=== PATIENT | female | born 1950 | race Two or more races ===

== ENCOUNTER 2025-02-25 06:04 | Day surgery (SDC) | payer MEDICARE, OTHER ==
[2025-02-20 12:09] LABS: Hematocrit 36.9 % (36.0-46.0); Hemoglobin 12.6 g/dL (12.2-16.2); Mean Corpuscular Hemoglobin 29.9 pg (28.0-32.0); Mean Corpuscular Volume 87.6 fL (80.0-100.0); Nucleated Red Blood Cells % 0.0 %
[2025-02-20 12:16] LABS: Urine Protein, UAD TRACE (Negative)
[2025-02-20 12:29] LABS: INR 1.08 (0.9-1.15); Partial Thromboplastin Time 23.6 SEC (24.5-34.5); Prothrombin Time 11.4 sec (9.3-11.8)
[2025-02-20 12:44] LABS: Alanine Aminotransferase 12 U/L (7-40); Albumin 3.9 g/dL (3.2-4.8); Anion Gap 8 (5-15); BUN/Creatinine Ratio 19.7 (10.0-20.0); Blood Urea Nitrogen 13 mg/dL (9-23); Calcium 9.1 mg/dL (8.7-10.4); Carbon Dioxide 27 mmol/L (20-31); Glucose 86 mg/dL (74-106); Potassium 4.3 mmol/L (3.5-5.1); Sodium 144 mmol/L (136-145); Total Protein 6.2 g/dL (5.7-8.2)
[2025-02-20 12:45] LABS: Alkaline Phosphatase 43 U/L (46-116); Bilirubin, Total 0.3 mg/dL (0.2-1.0); Chloride 109 mmol/L (98-107)
[~2025-02-25] VITALS: Ht 160 cm; Wt 54.4 kg
[~2025-02-25 06:04] MED LIST: LEVO88TA4 PO; ROSU40TA81 PO; TAMO20TA9 PO
[2025-02-25] MEDS ORDERED: ceFAZolin 2 GM/D5W50ml 50 ML IV ONE (07:23)
[2025-02-25] MEDS ORDERED: BUPIVACAINE HCL 50 ML ONE (08:03)
[2025-02-25] MEDS ORDERED: KETAMINE 50mg/ML 1ml syringe ONE (08:06)
[2025-02-25] MEDS ORDERED: fentaNYL CITRATE 100 MCG/2 ML VL ONE (08:07)
[2025-02-25] MEDS ORDERED: PROPOFOL 10 MG/ML 20 ML IV ONE (08:07)
[2025-02-25] MEDS ORDERED: HYDROmorphone HCL 2 MG/ML VL/or syr ONE (08:07)
[2025-02-25] MEDS ORDERED: ROCURONIUM 10MG/ML 10ML VIAL IV ONE (08:07)
[2025-02-25] MEDS ORDERED: LIDOCAINE 2% (LOCAL ANESTH.) PF 5ml SDV ONE (08:07)
[2025-02-25] MEDS ORDERED: KETOROLAC TROMETH 30 MG/ML 1ML VIAL ONE (08:07)
[2025-02-25] MEDS ORDERED: MIDAZOLAM HCL 2MG/2ML 2ml VIAL (1mg/ml) ONE (08:07)
[2025-02-25] MEDS ORDERED: ACETAMINOPHEN IV 100 ML IV ONE (08:08)
[2025-02-25] MEDS ORDERED: TRANEXAMIC ACID 10 ML ONE (08:43)
[2025-02-25 09:18] VITALS: PULSE 90; RESP 14; TEMP 97.3; O2SAT 100
[2025-02-25] MEDS ORDERED: MEPERIDINE HCL (25 MG/ML) 1ML VIAL ONE (09:25)
[2025-02-25 09:28] VITALS: PULSE 89; RESP 10; O2SAT 100
[2025-02-25] MEDS ORDERED: ONDANSETRON HCL 4 MG/2 ML VIAL IV PRN (09:30)
[2025-02-25] MEDS ORDERED: HYDROmorphone HCL 2 MG/ML VL/or syr IV PRN (09:30)
[2025-02-25] MEDS ORDERED: SUGAMMADEX 200mg/2ml Vial (100MG/ML) IV ONE (09:43)
[2025-02-25] MEDS ORDERED: PATIENTS OWN MEDICATION (Rosuvastatin Calcium (Crestor) 40 MG) PO SCH (10:00)
[2025-02-25] MEDS ORDERED: LEVOTHYROXINE SODIUM 88 MCG TAB PO SCH (10:00)
[2025-02-25] MEDS ORDERED: TAMOXIFEN CITR 10 MG TAB PO SCH (10:00)
--- NOTE | 2025-02-25 10:00 | DVHOP2 ---
Operative Report - 2 Report Details Date: 02/25/25 Preop Diagnosis: Right shoulder rotator cuff tear Postop Diagnosis: Right shoulder rotator cuff tear with subacromial impingement and proximal biceps tendon tear. Surgeon: Chace Rockwell MD Support Staff: None Anesthesiologist: Dr. Michaels Anesthesia: General Implant: Medacta all suture anchor x1, osseo anchor x1, collagen augment Rotium x1 Consent: The patient was informed of the risks and benefits of the procedure. These include but are not limited to complications of anesthesia, postoperative infection, incomplete relief of symptoms, recurrence of symptoms, damage to blood vessels, nerves and tendons, deep venous thrombosis, pulmonary embolism and possible need for repeat surgery in the future. Complications: None Estimated Blood Loss: Minimal Indications for Surgery: The patient is a 74-year-old with presented to the clinic with a history of right shoulder pain. Clinical and radiological evaluation demonstrated full-thickness tear with retraction to the glenohumeral joint. Mild atrophy was noted. Nonoperative and operative management options were discussed including reverse shoulder arthroplasty. Given the otherwise intact cartilage, primary rotator cuff repair was considered. Benefits, risks and treatment alternatives were discussed. Specific complications of the surgery such as neurovascular in jury, infection, arthrofibrosis, loss of limb or life were discussed. The patient decided to proceed with the surgical option. Name of Procedure Performed Right shoulder arthroscopy with rotator cuff repair, proximal biceps tenodesis, subacromial decompression and collagen augmentation Procedure Details Procedure Details: The patient was identified in the preoperative holding area and the surgical site was marked. The consent was verified. The patient was brought into the operating room and placed supine on the operating table. General anesthesia was administered. The beachchair attachment was applied to the operating table. The patient was now brought up into the beachchair position, approximately 60 degrees. The arm was prepped and draped in the usual sterile manner. The arm was placed in the attachment for the spyder, mechanical arm pradhan. The extremity was examined under anesthesia and was found to have good passive range of motion. A timeout was performed to confirm the identity of the patient, the nature of surgery, the site of surgery, the available of implants and x-rays and allergies to medications A standard posterior portal established. A 30 degree scope was inserted A standard anterior portal was established. A probe was inserted and the findings are as follows: 1. Intact subscapularis tendon 2. Significant fraying and tear of the biceps tendon 3. Circumferential degenerative labral tear 4. Grade I-II chondromalacia 5. Significant synovitis 6. Full-thickness rotator cuff tear, large-sized with retraction to cartilage with delamination The subacromial space was entered. Significant bursitis was noted. Decompression was carried out with bursectomy. The rotator cuff tear was visu alized. This was a large sized tear after debridement. Extensive releases were performed. A thermal ablation Wand was used on the superior and inferior surface of the rotator cuff to do the releases. Rotator interval was also released. Significant time and efforts were spent doing the steps was to decrease the tension on the final repair. After this step, the cuff was very mo bile. I decided to do a double row repair for this tear. A medial row Medacta all suture anchor was inserted anteriorly. 2 additional portals were made, the posterior lateral portal and the superior portal for this. A cannula was inserted into the lateral portal. A suture penetration and grasping device was used to grasp the tissue and passed the sutures. The sutures were sequentially passed from anterior to posterior direction. Six passes were made. The sutures were now tied for an excellent medial row footprint coverage. The anterior one suture limb and a suture loop were passed through the biceps tendon for a biceps tenodesis and then passed through the cuff as well. All of the sutures were now inserted into a knotless lateral row anchor. This was used as per manufacture's guidelines. A punch was used. Next, the anchor was used and inserted into the bone. Good fixation was noted. Subacromial decompression was completed with acromioplasty to remove approximately 5 mm of acromion as it was downsloping in nature. Irrigation was given and the skin portals were closed with 2-0 nylon Sterile dressing was applied. Local anesthetic was given. Shoulder immobilizer was applied Disposition: Good, the patient was extubated and taken to recovery without any complications. The patient was examined in the recovery and had intact neurovascular exam Plan: To remain in the brace. Follow-up in 1 week. Condition Good Disposition Home CHACE ROCKWELL MD Feb 25, 2025 10:00
[2025-02-25 11:13] VITALS: BP 112/64; PULSE 78; RESP 12; O2SAT 98
[2025-02-25] MEDS ORDERED: ATORVASTATIN 20 MG TAB PO SCH (22:00)
== END 2025-02-25 11:23 | disposition home or self-care (01) ==
LOC: SUR 06:04
PROVIDERS: ATTEND Orthopaedic Surgery Sports Medicine
DX: M75.121 Complete rotator cuff tear or rupture of right shoulder, not specified as traumatic (principal); M25.811 Other specified joint disorders, right shoulder; M75.41 Impingement syndrome of right shoulder; S46.211A Strain of muscle, fascia and tendon of other parts of biceps, right arm, initial encounter; S43.491A Other sprain of right shoulder joint, initial encounter; M94.211 Chondromalacia, right shoulder; M65.811 Other synovitis and tenosynovitis, right shoulder; I10 Essential (primary) hypertension; E03.9 Hypothyroidism, unspecified; Z98.41 Cataract extraction status, right eye; Z98.42 Cataract extraction status, left eye; Z98.890 Other specified postprocedural states; Z91.013 Allergy to seafood; Z91.09 Other allergy status, other than to drugs and biological substances; Z79.890 Hormone replacement therapy; Z85.3 Personal history of malignant neoplasm of breast; X58.XXXA Exposure to other specified factors, initial encounter; Y93.89 Activity, other specified; Y92.89 Other specified places as the place of occurrence of the external cause; Y99.8 Other external cause status
CPT/HCPCS: 29826; 29827; 29828; 36415; 80053; 81001; 85025; 85610; 85730; C1713; J0169; J0690; J1100; J1171; J1885; J2003; J2175; J2250; J2704; J3010; J3490; A4565; J0131